=== PATIENT | male | born 1935 | race Caucasian/White ===

== ENCOUNTER 2016-09-17 02:50 | Inpatient (IN) | payer MEDICARE ==
[~2016-09-17] VITALS: Ht 170.2 cm; Wt 86.6 kg
[2016-09-17] VITALS (482 sets, daily range): BP systolic 104–177; BP diastolic 42–95; PULSE 51–63; TEMP 97.2–98.4; O2SAT 94–100
[2016-09-17 03:13] LABS: BASO # 0.1 (0.0-0.2); BASO % 0.8 % (0.0-2.0); EOS # 0.3 (0.0-0.7); EOS % 3.8 % (0-4.0); GRAN # 5.5 (1.4-6.5); GRAN % 63.1 % (42.2-75.2); HEMATOCRIT 43.8 % (42.0-52.0); HEMOGLOBIN 15.3 g/dl (13.5-18.0); LYMPH # 1.5 (1.2-3.4); LYMPH % 17.2 % (20.0-51.0); MEAN CELL VOLUME 91 fl (80.0-100.0); MEAN CORPUSCULAR HEMOGLOBIN 32 pg (27.0-31.0); MEAN CORPUSCULAR HGB CONC 35 g/dl (33.0-37.0); MEAN PLATELET VOLUME 9.6 fl (7.4-10.4); MONO # 1.3 (0.1-0.6); MONO % 14.6 % (1.7-9.3); PLATELET COUNT 242 K/mm3 (130-400); RED BLOOD COUNT 4.79 M/mm3 (4.20-5.60); REDCELL DISTRIBUTION WIDTH-CV 12.3 % (11.5-14.5); WHITE BLOOD COUNT 8.7 K/mm3 (4.8-10.8)
[2016-09-17 03:23] LABS: ADJUSTED CALCIUM 9.2 mg/dL (8.4-10.2); ALBUMIN 4.5 gm/dL (3.5-5.0); BILIRUBIN,TOTAL 0.7 mg/dL (0.0-1.0); CALCIUM 9.6 mg/dL (8.4-10.2); CREATININE, serum 1.04 mg/dL (0.66-1.25); POTASSIUM 4.2 mmol/L (3.4-5.0); TOTAL PROTEIN 7.9 gm/dL (6.4-8.2)
[2016-09-17 03:36] LABS: TROPONIN-I 0.73 ng/mL (0.000-0.034)
[2016-09-17] MEDS ORDERED: TYLENOL W/COD1 UDTAB PO (03:58)
[2016-09-17] MEDS ORDERED: MEVACOR40 MG PO (03:59)
[2016-09-17] MEDS ORDERED: FLONASE NASAL S16 GM NS (04:00)
[2016-09-17] MEDS ORDERED: SYNTHROID 0.0.025 MG PO (04:00)
[2016-09-17] MEDS ORDERED: MULTI VITAMINS1 TAB PO (04:02)
[2016-09-17] MEDS ORDERED: COREG 25MG25 MG/TAB PO (04:02)
[2016-09-17] MEDS ORDERED: OMEGA-31 SGL PO (04:03)
[2016-09-17] MEDS ORDERED: FOLIC ACID0.8 MG PO (04:04)
[2016-09-17] MEDS ORDERED: VITAMIN D1000 IU PO (04:05)
[2016-09-17 04:06] LABS: INR 0.9 (0.8-3.0); PROTHROMBIN TIME 10.3 SECONDS (9.7-12.8)
[2016-09-17] MEDS ORDERED: ASPI325T6 PO (04:06)
[2016-09-17] MEDS ORDERED: B COMPLEX #11 TA1 PO (04:08)
[2016-09-17 06:17] LABS: MAGNESIUM 2.4 mg/dL (1.6-2.3)
[2016-09-17 06:49] LABS: THYROID STIMULATING HORMONE 3.34 uIU/mL (0.465-4.680)
[2016-09-17 09:45] LABS: CALCIUM 9.4 mg/dL (8.4-10.2)
[2016-09-18] VITALS (393 sets, daily range): BP systolic 86–136; BP diastolic 53–73; PULSE 55–61; TEMP 98.1–98.2; O2SAT 88–100
[2016-09-18 05:52] LABS: BASO % 0.4 % (0.0-2.0); EOS # 0.3 (0.0-0.7); EOS % 4.2 % (0-4.0); GRAN # 4.7 (1.4-6.5); GRAN % 64.3 % (42.2-75.2); HEMATOCRIT 40.1 % (42.0-52.0); HEMOGLOBIN 13.7 g/dl (13.5-18.0); LYMPH # 1.2 (1.2-3.4); LYMPH % 16.5 % (20.0-51.0); MEAN CELL VOLUME 92 fl (80.0-100.0); MEAN CORPUSCULAR HEMOGLOBIN 32 pg (27.0-31.0); MEAN CORPUSCULAR HGB CONC 34 g/dl (33.0-37.0); MEAN PLATELET VOLUME 9.5 fl (7.4-10.4); MONO # 1.1 (0.1-0.6); MONO % 14.3 % (1.7-9.3); PLATELET COUNT 169 K/mm3 (130-400); RED BLOOD COUNT 4.35 M/mm3 (4.20-5.60); REDCELL DISTRIBUTION WIDTH-CV 12.2 % (11.5-14.5); WHITE BLOOD COUNT 7.3 K/mm3 (4.8-10.8)
[2016-09-18 06:05] LABS: CREATININE, serum 0.99 mg/dL (0.66-1.25)
== END 2016-09-18 11:13 | disposition left against medical advice (07) | DRG 247 ==
LOC: COL.ER 02:50 → ICU 04:00 → COL.ER 04:00 → ICU 09-18 11:13
PROVIDERS: Emergency Medicine; Family Medicine; Internal Medicine Cardiovascular Disease; Nurse Practitioner Family
PROC: 0270356 Dilation of Coronary Artery, One Artery, Bifurcation, with Two Drug-eluting Intraluminal Devices, Percutaneous Approach (ICD-10-PCS; principal; 2016-09-17)
PROC: B2111ZZ Fluoroscopy of Multiple Coronary Arteries using Low Osmolar Contrast (ICD-10-PCS; 2016-09-17)
DX: I21.4 Non-ST elevation (NSTEMI) myocardial infarction (principal); I10 Essential (primary) hypertension; I25.10 Atherosclerotic heart disease of native coronary artery without angina pectoris; Z95.5 Presence of coronary angioplasty implant and graft; Z87.891 Personal history of nicotine dependence; Z86.73 Personal history of transient ischemic attack (TIA), and cerebral infarction without residual deficits; Z91.14 Patient's other noncompliance with medication regimen
CPT/HCPCS: 99223-AI; 99238; C1725; C1760; C1769; C1874; C1887; C9600; J0153; J0583; J1644; J2250; J2270; J3010; J7030; Q9967

== ENCOUNTER 2016-11-13 16:22 | Outpatient (RCR) | payer MEDICARE ==
[~2016-11-13 16:22] MED LIST: ASPI325T6 PO; B COMPLEX #11 TA1 PO; COREG 25MG25 MG/TAB PO; FLONASE NASAL S16 GM NS; FOLIC ACID0.8 MG PO; MEVACOR40 MG PO; MULTI VITAMINS1 TAB PO; OMEGA-31 SGL PO; SYNTHROID 0.0.025 MG PO; TYLENOL W/COD1 UDTAB PO; VITAMIN D1000 IU PO
== END 2017-01-14 | disposition home or self-care (01) ==
LOC: COL.CR
DX: Z48.812 Encounter for surgical aftercare following surgery on the circulatory system (principal); Z95.5 Presence of coronary angioplasty implant and graft; I25.10 Atherosclerotic heart disease of native coronary artery without angina pectoris

== ENCOUNTER → 2017-02-18 | Outpatient (CLI) | payer MEDICARE | LOC: COL.RAD 07:01 | DX: N28.1 Cyst of kidney, acquired (principal) ==

== ENCOUNTER → 2018-12-08 | Outpatient (CLI) | payer MEDICARE | LOC: COL.RAD 09:47 | DX: M47.26 Other spondylosis with radiculopathy, lumbar region (principal) ==

== ENCOUNTER 2019-01-06 08:37 | Day surgery (SDC) | payer MEDICARE ==
[2019-01-06] VITALS (7 sets, daily range): BP systolic 130–150; BP diastolic 74–96; PULSE 71–103; TEMP 97.3–97.8
[~2019-01-06] VITALS: Ht 170.2 cm; Wt 86.6 kg
[~2019-01-06 08:37] MED LIST changes: -B COMPLEX #11 TA1 PO; +B COMPLEX #11 TAB PO; +CARDI-OMEGA1000 MG PO; -OMEGA-31 SGL PO; +VITAMIN D 400400 IU PO; -VITAMIN D1000 IU PO
[2019-01-06 09:37] LABS: INR 1.4 (0.8-3.0); POTASSIUM 4.1 mmol/L (3.4-5.0); PROTHROMBIN TIME 16.9 SECONDS (9.7-12.8)
[2019-01-06] MEDS ORDERED: CARTIA XT120 MG PO (09:37)
[2019-01-06] MEDS ORDERED: ELIQUIS 5MG PO ×2 (09:39→11:04)
[2019-01-06] MEDS ORDERED: PLAVIX 75MG TAB75 MG PO (09:39)
[2019-01-06] MEDS ORDERED: NATURAL POTASS595 MG PO (09:41)
[2019-01-06] MEDS ORDERED: ASPIRIN E.C. 8181 MG PO (09:41)
[2019-01-06 10:12] LABS: THYROID STIMULATING HORMONE 2.79 uIU/mL (0.465-4.680)
--- NOTE | 2019-01-06 11:00 | NUR ---
Report from Didier Valero from bolt labeler-CV complete, pt maurice well. This nurse observed pt resting well in bed visiting with family.
[2019-01-06] MEDS ORDERED: COUMADIN 5MG5 MG/TAB PO (11:06)
[2019-01-06] MEDS ORDERED: MULTAQ400 MG PO (11:06)
--- NOTE | 2019-01-06 12:30 | NUR ---
Pt has ambulated and maurice PO intake s n/v. PIV removed with catheter intact.
--- NOTE | 2019-01-06 12:45 | NUR ---
Pt discharged per w/c by nurse with .
== END 2019-01-06 12:52 | disposition home or self-care (01) ==
LOC: COL.CAR 08:37
PROVIDERS: Internal Medicine Cardiovascular Disease
DX: I48.0 Paroxysmal atrial fibrillation (principal); I25.10 Atherosclerotic heart disease of native coronary artery without angina pectoris; I10 Essential (primary) hypertension; E03.9 Hypothyroidism, unspecified; I25.2 Old myocardial infarction; Z86.73 Personal history of transient ischemic attack (TIA), and cerebral infarction without residual deficits; Z88.0 Allergy status to penicillin; Z79.02 Long term (current) use of antithrombotics/antiplatelets; Z88.8 Allergy status to other drugs, medicaments and biological substances
CPT/HCPCS: J2704; J7030

== ENCOUNTER 2019-01-24 08:02 | Inpatient (IN) | payer MEDICARE ==
[2019-01-24] VITALS (10 sets, daily range): BP systolic 137–175; BP diastolic 53–118; PULSE 68–90; TEMP 97.5–98.4
[~2019-01-24] VITALS: Ht 170.2 cm; Wt 88.1 kg
[~2019-01-24 08:02] MED LIST changes: +ASPIRIN E.C. 8181 MG PO; +CARTIA XT120 MG PO; +COUMADIN 5MG5 MG/TAB PO; +ELIQUIS 5MG PO; +MULTAQ400 MG PO; +NATURAL POTASS595 MG PO; +PLAVIX 75MG TAB75 MG PO
[2019-01-24 08:49] LABS: HEMATOCRIT 44.3 % (42.0-52.0); HEMOGLOBIN 15.3 g/dl (13.5-18.0); MEAN CELL VOLUME 93 fl (80.0-100.0); MEAN CORPUSCULAR HEMOGLOBIN 32 pg (27.0-31.0); MEAN CORPUSCULAR HGB CONC 35 g/dl (33.0-37.0); MEAN PLATELET VOLUME 9.9 fl (7.4-10.4); PLATELET COUNT 204 K/mm3 (130-400); RED BLOOD COUNT 4.79 M/mm3 (4.20-5.60); REDCELL DISTRIBUTION WIDTH-CV 12.7 % (11.5-14.5)
[2019-01-24 08:59] LABS: CALCIUM 9.5 mg/dL (8.4-10.2); CREATININE, serum 0.95 (0.66-1.25); POTASSIUM 4.1 mmol/L (3.4-5.0)
[2019-01-24 09:11] LABS: PROTHROMBIN TIME 36.5 SECONDS (9.7-12.8)
[2019-01-24] MEDS ORDERED: ASPIRIN E.C. 8181 MG PO (09:21)
[2019-01-24] MEDS ORDERED: COUMADIN 5MG5 MG/TAB PO (09:24)
[2019-01-24] MEDS ORDERED: CARTIA XT120 MG PO (09:25)
[2019-01-24 09:29] LABS: THYROID STIMULATING HORMONE 2.39 uIU/mL (0.465-4.680)
--- NOTE | 2019-01-24 11:02 | NUR ---
SEDATION PER DR PHOENIX
--- NOTE | 2019-01-24 11:30 | NUR ---
report taken from manager cardiac cath, Pt having post EKG now, Mariah RN to take recovery, pt then to be admitted to medical
--- NOTE | 2019-01-24 11:40 | NUR ---
Report received from Anjum Sun.This nurse to take over cares of pt for Anjum Lopez.
[2019-01-24] MEDS ORDERED: COUMADIN 22.5 MG/TAB PO (11:56)
--- NOTE | 2019-01-24 12:08 | NUR ---
Pt to room 353,report to Anjum Cazares.
--- NOTE | 2019-01-24 14:00 | NUR ---
Pt arrived to room 353 from express unit. Saline lock to right FA is free of complications. Pt remains in AFIB per tele. He denies pain at this time other than states he is having leg spasms ever since cardioversion. at bedside. Updated on plan of care. Oriented to room and to staff.
--- NOTE | 2019-01-24 18:11 | NUR ---
Pt has had an uneventful shift since arriving to floor. States leg spasms are "getting better." Denies any other needs.
--- NOTE | 2019-01-24 19:40 | NUR ---
PT RESTING IN BED A+OX4. REPORTS NO PAIN. NO SOA. REPROTS "LEGS FEELING LIKE THEY ARE IN FIRE D/T CARDIOVERSION"- OFFERED HYDROCORTISONE AND REFUSED. NO EDEMA, NO REDNESS IN BILAT LEGS. IV FLUSHES WELL, NO REDNESS NO SWELLING. TELE ON. HEART RRR. TELE CALLED- PT GOING IN AND OUT OF AFIB/AFLUTTER/NRS. NO S/S WITH HEART RYTHM CHANGED. ASSISTED TO RESTROOM. NO NEEDS AT THIS TIME. CALL LIGHT IN REACH
[2019-01-25 03:26] VITALS: BP 144/84; PULSE 61; TEMP 98
--- NOTE | 2019-01-25 04:54 | NUR ---
PT HAD AN UNVENTFUL NIGHT. REPORTS NO NEW PAIN, DENIES NEED FOR ANY INTERVENTION. BURN PANDA FROM CARDIOVERSION NOTED ON CHEST AND BACK. INT TO THE RFA FLUSHES WELL, NO REDNESS, NO SWELLING. COUMADIN FOR VTE. TELE ON- SHOWS AFIB AT THIS TIME. CALLS FOR ASSISTANCE WHEN NEEDING TO WALK TO RESTROOM- STANDBY ASSIST- STEADY GAIT. NO NEEDS AT THIS TIME. CALL LIGHT IN REACH
[2019-01-25 06:34] LABS: BASO # 0.1 (0.0-0.2); BASO % 0.7 % (0.0-2.0); EOS # 0.2 (0.0-0.7); EOS % 3.1 % (0-4.0); GRAN # 4.9 (1.4-6.5); GRAN % 65.8 % (42.2-75.2); HEMATOCRIT 43.7 % (42.0-52.0); HEMOGLOBIN 15.1 g/dl (13.5-18.0); LYMPH # 1.3 (1.2-3.4); LYMPH % 17.6 % (20.0-51.0); MEAN CELL VOLUME 92 fl (80.0-100.0); MEAN CORPUSCULAR HEMOGLOBIN 32 pg (27.0-31.0); MEAN CORPUSCULAR HGB CONC 35 g/dl (33.0-37.0); MEAN PLATELET VOLUME 9.9 fl (7.4-10.4); MONO # 0.9 (0.1-0.6); MONO % 12.4 % (1.7-9.3); PLATELET COUNT 196 K/mm3 (130-400); RED BLOOD COUNT 4.76 M/mm3 (4.20-5.60); REDCELL DISTRIBUTION WIDTH-CV 12.4 % (11.5-14.5)
[2019-01-25 06:43] LABS: CALCIUM 9.4 mg/dL (8.4-10.2); CREATININE, serum 0.88 (0.66-1.25); MAGNESIUM 2.2 mg/dL (1.6-2.3); POTASSIUM 3.9 mmol/L (3.4-5.0)
[2019-01-25 06:52] LABS: PROTHROMBIN TIME 35.7 SECONDS (9.7-12.8)
--- NOTE | 2019-01-25 07:13 | NUR ---
report given to lesly watson. pt reports no needs
--- NOTE | 2019-01-25 07:15 | NUR ---
Received report. Patient was up in restroom with assistance. Tolerated well. Back to bed, states has some pain to chest where he was cardioverted with the corrales present. States it feels like a sunburn. Respirations are even and nonlabored. Patient is to go for PFT testing. Personal items and call light is within reach.
[2019-01-25 07:19] VITALS: BP 153/87; PULSE 91; TEMP 97.9
--- NOTE | 2019-01-25 11:17 | NUR ---
First visit from the linen manager. No needs right now.
[2019-01-25 11:30] VITALS: BP 148/87; PULSE 94; TEMP 98.1
--- NOTE | 2019-01-25 11:31 | NUR ---
GARY met with the patient and his Sun to discuss a discharge plan. The pt lives in [place] with Sun. The pt does not use DME and reports independence with ADLs. The pt's PCP is Dr. Best and receives medications from [facility] with no difficulties. The pt does not have advanced directives in the EMR but reports he does have them completed. The pt plans to return home upon discharge with Sun providing transportation. GARY will continue to follow to assist with any discharge recommendations.
[2019-01-25 15:35] VITALS: BP 136/60; PULSE 52; TEMP 97.5
--- NOTE | 2019-01-25 19:40 | NUR ---
Report given to oncoming shift, personal items and call light is withn reach.
[2019-01-25 19:50] VITALS: BP 135/65; PULSE 71; TEMP 98
--- NOTE | 2019-01-25 20:40 | NUR ---
pt resting in bed a+ox4. reports no pain. lungs clear x4. heart irregular rythm. tele on. rate WNL. pedal and radial pulses palpated 2+. bowel sounds heard throughout abd. pt reports no needs at this time. call light in reach
[2019-01-25 23:39] VITALS: BP 139/77; PULSE 56; TEMP 97.6
[2019-01-26 05:00] VITALS: BP 146/75; PULSE 76; TEMP 98.5
--- NOTE | 2019-01-26 05:18 | NUR ---
pt had an uneventful night. reported no pain. no soa. slept throughout night. lungs clear x4. bowel sounds heard throughout. heart rythm irregular. tele on. no edema noted. no skin breakdown. pt gait steady. no needs at thsi time. call light in reach
[2019-01-26 06:08] LABS: BASO % 0.4 % (0.0-2.0); EOS # 0.3 (0.0-0.7); EOS % 3.5 % (0-4.0); GRAN # 5.1 (1.4-6.5); GRAN % 68.8 % (42.2-75.2); HEMATOCRIT 42.7 % (42.0-52.0); LYMPH # 1.1 (1.2-3.4); LYMPH % 14.2 % (20.0-51.0); MEAN CELL VOLUME 91 fl (80.0-100.0); MEAN CORPUSCULAR HEMOGLOBIN 32 pg (27.0-31.0); MEAN CORPUSCULAR HGB CONC 35 g/dl (33.0-37.0); MONO # 0.9 (0.1-0.6); MONO % 12.6 % (1.7-9.3); PLATELET COUNT 193 K/mm3 (130-400); RED BLOOD COUNT 4.69 M/mm3 (4.20-5.60); REDCELL DISTRIBUTION WIDTH-CV 12.6 % (11.5-14.5)
[2019-01-26 06:26] LABS: CALCIUM 9.2 mg/dL (8.4-10.2); CREATININE, serum 0.92 (0.66-1.25); MAGNESIUM 2.2 mg/dL (1.6-2.3); POTASSIUM 3.6 mmol/L (3.4-5.0)
[2019-01-26 06:34] LABS: PROTHROMBIN TIME 49.1 SECONDS (9.7-12.8)
--- NOTE | 2019-01-26 06:48 | NUR ---
report given to lesly watson
--- NOTE | 2019-01-26 07:20 | NUR ---
Receive report from off going shift. Patient is observed laying in bed, awake and alert, watching TV. Has no needs at this time. Personal items and call light is within reach.
[2019-01-26 07:30] VITALS: BP 140/63; PULSE 64; TEMP 97.7
[2019-01-26 12:01] VITALS: BP 133/79; PULSE 66; TEMP 97.5
[2019-01-26 16:10] VITALS: BP 140/70; PULSE 59; TEMP 98.2
--- NOTE | 2019-01-26 17:51 | NUR ---
Patient sitting up on couch waiting on supper. We spoke about INR result and nursing clarified with Dr. Arceo who stated it was ok to give ordered dose. Patient was agreeable. Personal items and call light are within reach.
[2019-01-26 20:02] VITALS: BP 148/74; PULSE 53; TEMP 97.6
--- NOTE | 2019-01-26 21:00 | NUR ---
pt resting in bed a+ox4. reports no pain. no edema noted. soa- pt reports chronic. sat stable. vss. tele on- shows afib. npo at midnight. lungs clear x4. bowel sounds hear throughout. pedal and radial pulses palpated 2+. no needs at this time. call light in reach.
[2019-01-26 23:43] VITALS: BP 147/84; PULSE 64; TEMP 97.5
[2019-01-27 03:16] VITALS: BP 132/79; PULSE 123; TEMP 98.2
--- NOTE | 2019-01-27 06:43 | NUR ---
REPORT GIVEN TO CHRISTOS DUNLAP
[2019-01-27 07:02] LABS: BASO % 0.4 % (0.0-2.0); EOS # 0.3 (0.0-0.7); EOS % 3.7 % (0-4.0); GRAN # 4.8 (1.4-6.5); GRAN % 68.1 % (42.2-75.2); HEMATOCRIT 41.7 % (42.0-52.0); HEMOGLOBIN 14.8 g/dl (13.5-18.0); INR 4.4 (0.8-3.0); MEAN CELL VOLUME 91 fl (80.0-100.0); MEAN CORPUSCULAR HEMOGLOBIN 32 pg (27.0-31.0); MEAN CORPUSCULAR HGB CONC 36 g/dl (33.0-37.0); MEAN PLATELET VOLUME 10.1 fl (7.4-10.4); MONO # 0.9 (0.1-0.6); MONO % 13.2 % (1.7-9.3); PLATELET COUNT 197 K/mm3 (130-400); RED BLOOD COUNT 4.59 M/mm3 (4.20-5.60); REDCELL DISTRIBUTION WIDTH-CV 12.4 % (11.5-14.5)
[2019-01-27 07:04] LABS: PROTHROMBIN TIME 53.7 SECONDS (9.7-12.8)
[2019-01-27 07:16] LABS: CALCIUM 9.3 mg/dL (8.4-10.2); CREATININE, serum 0.82 (0.66-1.25); MAGNESIUM 2.1 mg/dL (1.6-2.3); POTASSIUM 3.6 mmol/L (3.4-5.0)
[2019-01-27 07:39] VITALS: BP 145/68; PULSE 78; TEMP 97.8
--- NOTE | 2019-01-27 10:00 | NUR ---
Patient is walking around the floor, gait is steady. Has no needs or pain verbalized.
[2019-01-27] MEDS ORDERED: COUMADIN 22.5 MG/TAB PO (10:02)
[2019-01-27] MEDS ORDERED: COUMADIN 5MG5 MG/TAB PO (10:02)
[2019-01-27] MEDS ORDERED: CORDARONE200 MG/TAB PO ×2 (10:06→10:07)
--- NOTE | 2019-01-27 11:38 | NUR ---
The patient is to discharge back home with his today, 01/27. SW presented and explained the IM form to the patient. The patient verbalized understanding, signed, and he was provided a copy. No additional needs at this time.
[2019-01-27 11:56] VITALS: BP 128/67; PULSE 96; TEMP 98.3
== END 2019-01-27 13:30 | disposition home or self-care (01) | DRG 310 ==
LOC: COL.CAR 08:02 → MEDICAL 11:18
PROVIDERS: Nurse Practitioner; ADMIT Internal Medicine Cardiovascular Disease
PROC: 5A2204Z Restoration of Cardiac Rhythm, Single (ICD-10-PCS; principal; 2019-01-24)
DX: I48.0 Paroxysmal atrial fibrillation (principal); I44.0 Atrioventricular block, first degree; E66.9 Obesity, unspecified; I25.10 Atherosclerotic heart disease of native coronary artery without angina pectoris; E03.9 Hypothyroidism, unspecified; I10 Essential (primary) hypertension; M19.019 Primary osteoarthritis, unspecified shoulder; M17.9 Osteoarthritis of knee, unspecified; M19.049 Primary osteoarthritis, unspecified hand; H91.90 Unspecified hearing loss, unspecified ear; I08.3 Combined rheumatic disorders of mitral, aortic and tricuspid valves; I65.23 Occlusion and stenosis of bilateral carotid arteries; Z86.73 Personal history of transient ischemic attack (TIA), and cerebral infarction without residual deficits; I25.2 Old myocardial infarction; Z90.49 Acquired absence of other specified parts of digestive tract; Z88.6 Allergy status to analgesic agent; Z88.8 Allergy status to other drugs, medicaments and biological substances; Z79.02 Long term (current) use of antithrombotics/antiplatelets; Z79.51 Long term (current) use of inhaled steroids; Z79.01 Long term (current) use of anticoagulants; Z87.891 Personal history of nicotine dependence; Z95.5 Presence of coronary angioplasty implant and graft; Z68.30 Body mass index [BMI] 30.0-30.9, adult
CPT/HCPCS: J2704; J7030

== ENCOUNTER 2020-07-05 00:33 | Emergency (ER) | payer MEDICARE ==
[~2020-07-05] VITALS: Ht 170.2 cm; Wt 86.4 kg
[~2020-07-05 00:33] MED LIST changes: +CORDARONE200 MG/TAB PO; +COUMADIN 22.5 MG/TAB PO
[2020-07-05 00:42] VITALS: TEMP 97.3
[2020-07-05 02:50] VITALS: BP 143/90; PULSE 87
== END 2020-07-05 02:50 | disposition home or self-care (01) ==
LOC: COL.ER 00:33
DX: S01.81XA Laceration without foreign body of other part of head, initial encounter (principal); Z88.0 Allergy status to penicillin; Z86.73 Personal history of transient ischemic attack (TIA), and cerebral infarction without residual deficits; Z88.8 Allergy status to other drugs, medicaments and biological substances; Z87.891 Personal history of nicotine dependence; W01.198A Fall on same level from slipping, tripping and stumbling with subsequent striking against other object, initial encounter; Y92.000 Kitchen of unspecified non-institutional (private) residence as the place of occurrence of the external cause

== ENCOUNTER → 2020-07-10 | Outpatient (CLI) | payer MEDICARE ==
[2020-07-10 09:30] VITALS: BP 139/73; PULSE 69; TEMP 98.4
== END ==
LOC: COL.ER 09:15
DX: Z48.02 Encounter for removal of sutures (principal)